=== PATIENT | female | born 1945 | race Caucasian/White ===

== ENCOUNTER 2016-11-17 10:20 | Outpatient (CLI) | payer MEDICARE, OTHER | END 2016-11-17 23:59 | DX: C25.9 Malignant neoplasm of pancreas, unspecified (principal); I10 Essential (primary) hypertension; E11.9 Type 2 diabetes mellitus without complications ==

== ENCOUNTER 2017-03-21 11:58 | Emergency (ER) | payer MEDICARE, OTHER ==
[2017-03-21] MEDS ORDERED: SODIUM CHLORIDE 0.9% 1,000 ML IV ONE (14:25)
[2017-03-21] MEDS ORDERED: ONDANSETRON 4 MG/2 ML VIAL IVP STA ×2 (14:33→18:45)
[2017-03-21] MEDS ORDERED: DIPHENOX/ATROPINE 2.5/0.025 MG TABLET PO STA (14:33)
--- NOTE | 2017-03-21 14:35 | ED Physician Documentation ---
PD HPI NVD - Stated complaint Stated Complaint: V/D - Chief complaint Chief Complaint: Abd Pain - History obtained from History obtained from: Patient, Family - History of Present Illness Timing - onset: Other (71-year-old woman with advanced pancreatic cancer undergoing chemotherapy, last infusion Tuesday through Tuesday of last week with 5 fluorouracil. Much of the history is from her because she has some memory difficulties. For the last day or so she has had vomiting and diarrhea, no blood from either end. She has chronic abdominal pain but not increased abdominal pain. There is no associated fever.) - Additonal information Additional information: Her oncologist is a Dr. 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 - Present Medications Home Medications: Ambulatory Orders Medication Instructions Recorded Confirmed Citalopram [CeleXA] 10 mg PO DAILY 10/17/15 03/21/17 Esomeprazole [NexIUM] 40 mg PO DAILY 10/17/15 03/21/17 Ondansetron [Zofran Odt] 8 mg PO BID PRN 08/02/16 03/21/17 Potassium Chloride [Klor-Con 10] 20 meq PO BID 08/02/16 03/21/17 Amitriptyline [Elavil] 50 mg PO DAILY PM 02/07/17 03/21/17 Ascorbic Acid [Vitamin C] 500 mg PO DAILY 02/07/17 03/21/17 Calcium Carbonate/Vitamin D3 1 cap PO DAILY 02/07/17 03/21/17 [Calcium 600-Vit D3 400 Tablet] Fluorouracil 3,000 mg PO ONCE 02/07/17 02/07/17 Lipase/Protease/Amylase [Jim [place] 4 - 5 cap PO AC 02/07/17 03/21/17 24,000 Units Capsule] Multivitamin [Multivitamins] 1 cap PO DAILY 02/07/17 03/21/17 Prochlorperazine Maleate 10 mg PO Q6H PRN 02/07/17 03/21/17 [Compazine] LORazepam [Ativan] 1 tab .Q4-6 HOURS PRN 03/21/17 03/21/17 Metoclopramide [Reglan] 10 mg PO Q6H PRN #20 tablet 03/21/17 - Allergies Allergies/Adverse Reactions: Allergies Allergy/AdvReac Type Severity Reaction Status Date / Time clobetasone Allergy Nausea Verified 03/21/17 12:14 erythromycin lactobionate * Allergy Rash Verified 03/21/17 12:14 [From Erythrocin] nefazodone HCl * Allergy Rash Verified 03/21/17 12:14 [From Serzone] - Social History Does the pt smoke?: No Smoking Status: Current every day smoker Does the pt drink ETOH?: No Does the pt have substance abuse?: No - Immunizations Immunizations are current?: Yes PD ED PE NORMAL - Vitals Vital signs reviewed: Yes - General General: No acute distress, Other (A/O x2) - HEENT HEENT: PERRL, EOMI - Neck Neck: Supple, no meningeal sign, No bony TTP - Cardiac Cardiac: RRR, No murmur - Respiratory Respiratory: No respiratory distress, Clear bilaterally - Abdomen Abdomen: Other (Mild diffuse TTP, nl bowel tones) - Back Back: No CVA TTP, No spinal TTP - Extremities Extremities: No edema, No calf tenderness / cord - Neuro Neuro: No motor deficit, No sensory deficit - Psych Psych: Normal mood, Normal affect Results - Vitals Vitals: Vital Signs - 24 hr 03/21/17 03/21/17 03/21/17 12:05 14:39 16:54 Temperature 36.6 C Heart Rate 114 H 108 H 111 H Respiratory 18 20 17 Rate Blood Pressure 138/67 H 105/56 L 112/58 L O2 Saturation 91 L 97 98 Oxygen O2 Source Room air - Labs Labs: Microbiology 03/21/17 20:10 Clostridium difficile (PCR) - Final Stool 03/21/17 20:10 Campylobacter Antigen Assay - Final Stool Laboratory Tests 03/21/17 03/21/17 14:40 14:40 WBC 1.0 L* RBC 4.41 Hgb 12.3 Hct 37.3 MCV 84.5 MCH 28.0 MCHC 33.1 RDW 23.1 H Plt Count 161 MPV 7.8 L Neut # 0.6 L Lymph # 0.1 L [place] # 0.2 Eos # 0.1 Baso # 0.0 Absolute Nucleated RBC 0.00 Nucleated RBCs 0.5 Platelet Estimate NORMAL (130-450,000) Platelet Morphology 2+ GIANT PLATELETS RBC Morph Micro Appear 3+ POIKILOCYTOSIS Sodium 129 L Potassium 3.2 L Chloride 94 L Carbon Dioxide 27 Anion Gap 8.0 BUN 27 H Creatinine 1.1 H Estimated GFR (MDRD) 49 L Glucose 167 H Calcium 8.3 L Total Bilirubin 0.6 AST 20 ALT 24 Alkaline Phosphatase 88 Total Protein 5.7 L Albumin 2.9 L Globulin 2.8 Albumin/Globulin Ratio 1.0 Lipase < 10 L PD MEDICAL DECISION MAKING - ED course ED course: 71-year-old woman with pancreatic cancer undergoing chemotherapy presents with vomiting and diarrhea after treatment with 5-fluorouracil. She was administered 2 L of crystalloid and potassium replacement. I spoke with her oncologist by phone who recommended stool studies as well. But agrees that probably this is from chemotherapy. There is no clinical evidence of obstruction. It took a while to get a hold of her nausea but eventually after a few doses of antiemetics she was able to pass an oral challenge her requested discharge. Departure - Departure Disposition: 01 Home, Self Care Clinical Impression: Vomiting Qualifiers: Vomiting type: unspecified Vomiting Intractability: non-intractable Nausea presence: with nausea Qualified Code(s): R11.2 - Nausea with vomiting, unspecified Diarrhea Qualifiers: Diarrhea type: unspecified type Qualified Code(s): R19.7 - Diarrhea, unspecified Condition: Good Record reviewed to determine appropriate education?: Yes Instructions: Nausea Vomit Control Prescriptions: Metoclopramide [Reglan] 10 mg PO Q6H PRN #20 tablet PRN Reason: Nausea / Vomiting Comments: Call your doctor to arrange a follow-up appointment, make the next available appointment. In the interim, return anytime if worse or if new symptoms develop.
[2017-03-21] MEDS ORDERED: ONDANSETRON 4 MG/2 ML VIAL ONE ×2 (14:55→19:15)
[2017-03-21] MEDS ORDERED: DIPHENOX/ATROPINE 2.5/0.025 MG TABLET PO ONE (14:55)
[2017-03-21 15:05] LABS: BASOPHILS % (AUTO) 0.4 %; EOSINOPHILS # (AUTO) 0.1 10^3/uL (0.0-0.7); EOSINOPHILS % (AUTO) 5.4 %; HCT - HEMATOCRIT 37.3 % (37.0-47.0); HGB - HEMOGLOBIN 12.3 g/dL (12.0-16.0); LYMPHOCYTES # (AUTO) 0.1 10^3/uL (1.5-3.5); LYMPHOCYTES % (AUTO) 11.9 %; MEAN CORPUSCULAR HGB CONC 33.1 g/dL (32.0-36.0); MEAN CORPUSCULAR VOLUME 84.5 fL (81.0-99.0); MEAN PLATELET VOLUME 7.8 fL (7.9-10.8); MONOCYTES # (AUTO) 0.2 10^3/uL (0.0-1.0); MONOCYTES % (AUTO) 18.5 %; NEUTROPHILS % (AUTO) 63.8 %; NUCLEATED RED BLOOD CELLS AUTO 0.5 /100WBC; RED BLOOD COUNT 4.41 10^6/uL (4.20-5.40); RED CELL DISTRIBUTION WIDTH 23.1 % (12.0-15.0)
[2017-03-21 15:16] LABS: NEUTROPHILS # (AUTO) 0.6 10^3/uL (1.5-6.6)
[2017-03-21 15:17] LABS: BILIRUBIN,TOTAL 0.6 mg/dL (0.2-1.0); BUN - BLOOD UREA NITROGEN 27 mg/dL (6-20); CALCIUM 8.3 mg/dL (8.5-10.3); CARBON DIOXIDE - CO2 27 mmol/L (21-32); CHLORIDE 94 mmol/L (101-111); CREATININE 1.1 mg/dL (0.4-1.0); GFR - MDRD 49 (>89); GLUCOSE 167 mg/dL (70-100); POTASSIUM 3.2 mmol/L (3.5-5.0); SODIUM 129 mmol/L (135-145); TOTAL PROTEIN 5.7 g/dL (6.7-8.2)
[2017-03-21 15:18] LABS: LIPASE < 10 U/L (22-51)
[2017-03-21] MEDS ORDERED: POTASSIUM BICARB 25 MEQ TABLET PO STA (15:19)
[2017-03-21] MEDS ORDERED: LACTATED RINGERS 1,000 ML IV STA (15:19)
[2017-03-21] MEDS ORDERED: POTASSIUM BICARB 25 MEQ TABLET PO ONE (15:25)
[2017-03-21 16:09] LABS: PLATELET MORPHOLOGY 2+ GIANT PLATELETS (NORMAL)
[2017-03-21 16:10] LABS: PLATELET ESTIMATE, MANUAL NORMAL (130-450,000) (NORMAL)
[2017-03-21] MEDS ORDERED: METOCLOPRAMIDE 10 MG/2 ML VIAL IVP STA (16:29)
[2017-03-21] MEDS ORDERED: METOCLOPRAMIDE 10 MG/2 ML VIAL ONE (16:49)
[2017-03-21] MEDS ORDERED: POTASSIUM CHLORIDE 20 MEQ TABLET PO STA (17:22)
[2017-03-21] MEDS ORDERED: POTASSIUM CHLORIDE 20 MEQ TABLET PO ONE (19:15)
[2017-03-21] MEDS ORDERED: MAG HYDROX/AL HYDROX/SIMETH 30 ML UDC PO STA (19:43)
[2017-03-21] MEDS ORDERED: LIDOCAINE VISCOUS 2% 15 ML UDC MM STA (19:43)
[2017-03-21] MEDS ORDERED: MAG HYDROX/AL HYDROX/SIMETH 30 ML UDC ONE (19:46)
[2017-03-21] MEDS ORDERED: LIDOCAINE VISCOUS 2% 15 ML UDC MM ONE (19:46)
[2017-03-21 21:52] VITALS: BP 129/66
== END 2017-03-21 22:06 | disposition home or self-care (01) ==
LOC: ED 11:58
DX: R11.2 Nausea with vomiting, unspecified (principal); R19.7 Diarrhea, unspecified; C25.9 Malignant neoplasm of pancreas, unspecified; E11.9 Type 2 diabetes mellitus without complications; F17.200 Nicotine dependence, unspecified, uncomplicated; Z92.21 Personal history of antineoplastic chemotherapy
CPT/HCPCS: 36415; 80053; 83690; 85025; 87045; 87046; 87077; 87493; 96374; 96375; 99283; A9270; 83630

== ENCOUNTER 2017-03-25 10:53 | Emergency (ER) | payer MEDICARE, OTHER ==
[2017-03-25] MEDS ORDERED: SODIUM CHLORIDE 0.9% 1,000 ML IV ONE (12:15)
[2017-03-25] MEDS ORDERED: HYDROmorphone 1 MG/ML SYRINGE IVP STA (12:15)
[2017-03-25] MEDS ORDERED: ONDANSETRON 4 MG/2 ML VIAL IVP STA (12:15)
[2017-03-25] MEDS ORDERED: HYDROmorphone 1 MG/ML SYRINGE ONE (12:45)
[2017-03-25] MEDS ORDERED: ONDANSETRON 4 MG/2 ML VIAL ONE (12:45)
[2017-03-25 13:12] LABS: BASOPHILS % (AUTO) 0.3 %; EOSINOPHILS % (AUTO) 1.5 %; HCT - HEMATOCRIT 37.5 % (37.0-47.0); HGB - HEMOGLOBIN 12.6 g/dL (12.0-16.0); LYMPHOCYTES % (AUTO) 11.2 %; MEAN CORPUSCULAR HEMOGLOBIN 28.1 pg (27.0-31.0); MEAN CORPUSCULAR HGB CONC 33.5 g/dL (32.0-36.0); MEAN CORPUSCULAR VOLUME 83.9 fL (81.0-99.0); MEAN PLATELET VOLUME 8.6 fL (7.9-10.8); MONOCYTES % (AUTO) 0.5 %; NEUTROPHILS % (AUTO) 86.5 %; RED BLOOD COUNT 4.46 10^6/uL (4.20-5.40); RED CELL DISTRIBUTION WIDTH 22.7 % (12.0-15.0); UNCORRECTED WHITE BLOOD COUNT 6.9 x10^3/uL; WHITE BLOOD COUNT 6.9 x10^3/uL (4.8-10.8)
[2017-03-25 13:22] LABS: BILIRUBIN,TOTAL 0.8 mg/dL (0.2-1.0); CALCIUM 8.9 mg/dL (8.5-10.3); CREATININE 0.8 mg/dL (0.4-1.0); TOTAL PROTEIN 5.1 g/dL (6.7-8.2)
[2017-03-25] MEDS ORDERED: POTASSIUM BICARB 25 MEQ TABLET PO STA (13:22)
[2017-03-25] MEDS ORDERED: POTASSIUM CHLOR 20 MEQ/100 ML 100 ML IV ONE (13:22)
[2017-03-25 13:23] LABS: POTASSIUM 2.4 mmol/L (3.5-5.0)
[2017-03-25] MEDS ORDERED: POTASSIUM BICARB 25 MEQ TABLET PO ONE (13:29)
[2017-03-25] MEDS ORDERED: POTASSIUM CHLOR 10 MEQ/100 ML 200 ML IV ONE (13:32)
[2017-03-25] MEDS ORDERED: POTASSIUM CHLOR 10 MEQ/100 ML 100 ML IV ONE ×2 (13:35→13:37)
[2017-03-25 13:58] LABS: BAND NEUTROPHILS % (MANUAL) 22 %; LYMPHOCYTES % (MANUAL) 12 %; NEUTROPHILS % (MANUAL) 31 %; TOTAL CELLS COUNTED 100
[2017-03-25 13:59] LABS: NP AUTO DIFFERENTIAL? YES; NP MAN DIFFERENTIAL? NO
[2017-03-25 15:31] LABS: PH,URINE 6.5 PH (5.0-7.5)
[2017-03-25 15:33] LABS: BILIRUBIN,URINE NEGATIVE (NEGATIVE); UA CHARGE (STRIP ONLY) YES; UR CULTURE IF IND NOT INDICATED
[2017-03-25 16:18] VITALS: BP 144/67
--- NOTE | 2017-03-25 16:18 | ED Physician Documentation ---
History of Present Illness - Stated complaint Stated Complaint: V/D - Chief complaint Chief Complaint: Abd Pain - History obtained from History obtained from: Patient, Family - Additonal information Additional information: The patient is a pleasant 71-year-old female with a history of pancreatic cancer with liver metastases, diagnosed one half years ago, who presents complaining of "stomachache." She describes it as "a burning esophagus." She reports vomiting and watery diarrhea. Her symptoms started 5 days ago, and worsen when trying to eat. She denies fever or dysuria. She underwent a round of chemotherapy 1 week ago. She was seen in the emergency department here 4 days ago with similar symptoms, and was treated with IV fluids and antiemetics. Review of her record from that visit reveals neutropenia at that time with a white blood cell count of 1.0. She was also hypokalemic, and was treated with supplemental potassium. Review of Systems Constitutional: reports: Fatigue. denies: Fever Nose: denies: Congestion Throat: denies: Sore throat Cardiac: denies: Chest pain / pressure Respiratory: denies: Dyspnea, Cough GI: reports: Abdominal Pain, Nausea, Vomiting, Diarrhea. denies: Bloody / black stool : denies: Dysuria Skin: denies: Rash Musculoskeletal: denies: Extremity swelling Neurologic: reports: Generalized weakness. denies: Focal weakness, Numbness, Altered mental status, Headache PD PAST MEDICAL HISTORY - Past Medical History Respiratory: COPD Endocrine/Autoimmune: Type 2 diabetes GI: Other Psych: Anxiety Musculoskeletal: Osteoarthritis, Fibromyalgia, Osteopenia, Other Derm: Psoriasis Other Past Medical History: Pancreatic cancer with liver metastases. 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 - Present Medications Home Medications: Ambulatory Orders Medication Instructions Recorded Confirmed Citalopram [CeleXA] 10 mg PO DAILY 10/17/15 03/21/17 Esomeprazole [NexIUM] 40 mg PO DAILY 10/17/15 03/21/17 Ondansetron [Zofran Odt] 8 mg PO BID PRN 08/02/16 03/21/17 Potassium Chloride [Klor-Con 10] 20 meq PO BID 08/02/16 03/21/17 Amitriptyline [Elavil] 50 mg PO DAILY PM 02/07/17 03/21/17 Ascorbic Acid [Vitamin C] 500 mg PO DAILY 02/07/17 03/21/17 Calcium Carbonate/Vitamin D3 1 cap PO DAILY 02/07/17 03/21/17 [Calcium 600-Vit D3 400 Tablet] Fluorouracil 3,000 mg PO ONCE 02/07/17 02/07/17 Lipase/Protease/Amylase [Jim Dr 4 - 5 cap PO AC 02/07/17 03/21/17 24,000 Units Capsule] Multivitamin [Multivitamins] 1 cap PO DAILY 02/07/17 03/21/17 Prochlorperazine Maleate 10 mg PO Q6H PRN 02/07/17 03/21/17 [Compazine] LORazepam [Ativan] 1 tab .Q4-6 HOURS PRN 03/21/17 03/21/17 Metoclopramide [Reglan] 10 mg PO Q6H PRN #20 tablet 03/21/17 - Allergies Allergies/Adverse Reactions: Allergies Allergy/AdvReac Type Severity Reaction Status Date / Time clobetasone Allergy Nausea Verified 03/21/17 12:14 erythromycin lactobionate * Allergy Rash Verified 03/21/17 12:14 [From Erythrocin] nefazodone HCl * Allergy Rash Verified 03/21/17 12:14 [From Serzone] - Social History Does the pt smoke?: No Smoking Status: Current every day smoker Does the pt drink ETOH?: No Does the pt have substance abuse?: No - Immunizations Immunizations are current?: Yes PD ED PE NORMAL - Vitals Vital signs reviewed: Yes (Hypertensive and mildly tachycardic.) - General General: Alert and oriented X 3, Well developed/nourished, Other (Appears fatigued.) - HEENT HEENT: Atraumatic, EOMI, Pharynx benign - Neck Neck: Supple, no meningeal sign, No adenopathy, No JVD - Cardiac Cardiac: No murmur, Other (Mildly tachycardic at 100.) - Respiratory Respiratory: No respiratory distress, Clear bilaterally - Abdomen Abdomen: Soft, Non tender - Back Back: No CVA TTP - Derm Derm: No rash - Extremities Extremities: No edema, No calf tenderness / cord - Neuro Neuro: Alert and oriented X 3, No motor deficit, Normal speech Results - Vitals Vitals: Oxygen O2 Source Nasal cannula Oxygen Flow Rate 2 - Labs Labs: Laboratory Tests 03/25/17 03/25/17 03/25/17 12:55 12:55 15:16 WBC 6.9 RBC 4.46 Hgb 12.6 Hct 37.5 MCV 83.9 MCH 28.1 MCHC 33.5 RDW 22.7 H Plt Count 148 MPV 8.6 Neut # Not Reportable Lymph # Not Reportable [place] # Not Reportable Eos # Not Reportable Baso # Not Reportable Absolute Nucleated RBC Not Reportable Total Counted 100 Band Neuts % (Manual) 22 H Reactive Lymphs % (Man) 6 Metamyelocytes % 3 H Myelocytes % 9 H Neutrophils # (Manual) 3.7 Lymphocytes # (Manual) 1.2 L Monocytes # (Manual) 1.2 H Nucleated RBCs 2 Sodium 129 L Potassium 2.4 L* Chloride 93 L Carbon Dioxide 26 Anion Gap 10.0 BUN 24 H Creatinine 0.8 Estimated GFR (MDRD) 71 L Glucose 135 H Calcium 8.9 Total Bilirubin 0.8 AST 20 ALT 21 Alkaline Phosphatase 65 Total Protein 5.1 L Albumin 2.5 L Globulin 2.6 Albumin/Globulin Ratio 1.0 Lipase 13 L Urine Color DARK YELLOW Urine Clarity CLEAR Urine pH 6.5 Ur Specific [place] 1.015 Urine Protein TRACE Urine Glucose (UA) NEGATIVE Urine Ketones 40 H Urine Occult Blood TRACE-INTA Urine Nitrite NEGATIVE Urine Bilirubin NEGATIVE Urine Urobilinogen 0.2 (NORMAL) Ur Leukocyte Esterase NEGATIVE Ur Microscopic Review NOT INDICATED Urine Culture Comments NOT INDICATED PD MEDICAL DECISION MAKING - ED course Complexity details: reviewed old records, reviewed results, re-evaluated patient , considered differential, d/w patient, d/w family ED course: The patient's presentation is significant for vomiting and diarrhea with dehydration, one-week post chemotherapy for pancreatic cancer. Her lab results also reveal hypokalemia, with a potassium of 2.4, and hyponatremia, with a sodium of 129. She is no longer neutropenic, with a white blood cell count of 6.5. Treatment in the emergency department included administration of normal saline 1 L IV, ondansetron 4 mg IV, Dilaudid 1 mg IV, and potassium 20 mEq IV, and 25 mEq orally. Following the above treatment she felt subjectively much improved, and she demonstrated ability to drink fluids and eat crackers without recurrent nausea. I discussed with her and her daughter continued symptomatic treatment, outpatient follow-up, as well as potentially worrisome signs or symptoms that should prompt reevaluation in the emergency department. Departure - Departure Disposition: 01 Home, Self Care Clinical Impression: Vomiting and diarrhea, Dehydration, Hypokalemia, Hyponatremia Pancreatic cancer Qualifiers: Pancreatic malignancy location: unspecified Qualified Code(s): C25.9 - Malignant neoplasm of pancreas, unspecified Condition: Stable Instructions: ED Dehydration, ED Potassium Deficiency Follow-Up: Romel Quesada MD [Provider Admit Priv/Credential] - Comments: 1. Drink plenty of fluids. 2. Use your antinausea medication as needed. 3. Resume taking her potassium as previously prescribed. 4. Follow-up with your primary physician or your oncologist. Call to schedule an appointment. 5. Return to the emergency department if you develop increasing abdominal pain , persistent vomiting, recurrent dehydration, or otherwise worsening symptoms. Discharge Date/Time: 03/25/17 17:01
== END 2017-03-25 17:01 | disposition home or self-care (01) ==
LOC: ED 10:53
DX: R11.10 Vomiting, unspecified (principal); R19.7 Diarrhea, unspecified; E86.0 Dehydration; E87.6 Hypokalemia; E87.1 Hypo-osmolality and hyponatremia; C25.9 Malignant neoplasm of pancreas, unspecified; C78.7 Secondary malignant neoplasm of liver and intrahepatic bile duct; E11.9 Type 2 diabetes mellitus without complications; Z92.21 Personal history of antineoplastic chemotherapy; Z87.891 Personal history of nicotine dependence
CPT/HCPCS: 36415; 80053; 81003; 83690; 85025; 96374; 96375; 96376; 99284; A9270; J1170; 81001; 87086

== ENCOUNTER 2017-07-04 14:48 | Outpatient (CLI) | payer MEDICARE, OTHER ==
--- NOTE | 2017-07-05 09:47 | XRAY Report ---
TWO-VIEW CHEST: 07/04/2017 CLINICAL INDICATION: Cough, dyspnea, effusion. COMPARISON: CT 06/28/2016, chest x-ray 06/25/2016. FINDINGS: Frontal and lateral views of the chest demonstrate a normal cardiac silhouette. A left ju gular port terminates in the distal superior vena cava. A small left pleural effusion is present, wi th volume smaller than seen on pre-thoracentesis film of 06/25/2016. Minimal basilar atelectasis is present. The right lung remains clear. IMPRESSION: SMALL LEFT PLEURAL EFFUSION, WITH BASILAR ATELECTASIS. JOB #: [id number] EXT JOB #:[id number]
== END 2017-07-04 14:49 | disposition home or self-care (01) ==
LOC: DI 14:48
PROVIDERS: ATTEND Family Medicine
DX: J90 Pleural effusion, not elsewhere classified (principal)
CPT/HCPCS: 71020

== ENCOUNTER 2017-08-04 14:00 | Outpatient (CLI) | payer MEDICARE, OTHER ==
[2017-08-04 20:22] LABS: HEMOGLOBIN A1C 0.99 g/dL
== END 2017-08-04 14:01 ==
LOC: LAB.WCP 14:00
PROVIDERS: ATTEND Family Medicine
DX: E11.9 Type 2 diabetes mellitus without complications (principal)
CPT/HCPCS: 36415; 83036

== ENCOUNTER 2017-12-13 00:22 | Emergency (ER) | payer MEDICARE, OTHER ==
--- NOTE | 2017-12-13 02:47 | ED Physician Documentation ---
PD HPI ABD PAIN - Stated complaint Stated Complaint: ABD PAIN - Chief complaint Chief Complaint: Abd Pain - History obtained from History obtained from: Patient - History of Present Illness Timing - onset: How many months ago (3-4) Timing - duration: Months Timing - details: Gradual onset, Intermittant, Waxing and waning Pain level now: 6 Quality: Pain Location: RUQ, Epigastric, LUQ Radiation: No: Chest, , Lower back, Left flank, Left shoulder, Right flank, Right shoulder, Upper back Improved by: Laying still Worsened by: Eating Associated symptoms: Nausea, Vomiting. No: Fever, Diarrhea, Constipation, Dysuria, Chest pain - Additional information Additional information: c/o few months of gradually worsening pain across upper abdomen, episodic. also increasing component of burning midline upper abdomen and chest discomfort consistent with GERD although worse and more frequent than previous. patient has pancreatic CA and recently discovered liver masses and is in the process of mapping out where she will have radiation tx. for this. she take oxycontin and oxycodone on regular basis for ongoing upper abdominal pain but this was not providing adequate relief tonight Review of Systems Constitutional: reports: Reviewed and negative Cardiac: reports: Reviewed and negative Respiratory: reports: Reviewed and negative GI: reports: Abdominal Pain, Nausea, Vomiting (denied vomiting, but had emesis during HPI). 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 - Present Medications Home Medications: Ambulatory Orders Medication Instructions Recorded Confirmed Citalopram [CeleXA] 10 mg PO DAILY 10/17/15 05/16/17 Esomeprazole [NexIUM] 40 mg PO DAILY 10/17/15 05/16/17 Ondansetron [Zofran Odt] 8 mg PO BID PRN 08/02/16 05/16/17 Potassium Chloride [Klor-Con 10] 20 meq PO BID 08/02/16 05/16/17 Amitriptyline [Elavil] 50 mg PO DAILY PM 02/07/17 05/16/17 Ascorbic Acid [Vitamin C] 500 mg PO DAILY 02/07/17 05/16/17 Calcium Carbonate/Vitamin D3 1 cap PO DAILY 02/07/17 05/16/17 [Calcium 600-Vit D3 400 Tablet] Fluorouracil 3,000 mg PO ONCE 02/07/17 02/07/17 Lipase/Protease/Amylase [[place] Dr 2 cap PO AC 02/07/17 05/16/17 24,000 Units Capsule] Multivitamin [Multivitamins] 1 cap PO DAILY 02/07/17 05/16/17 Prochlorperazine Maleate 10 mg PO Q6H PRN 02/07/17 05/16/17 [Compazine] LORazepam [Ativan] 1 tab .Q4-6 HOURS PRN 03/21/17 05/16/17 Metoclopramide [Reglan] 10 mg PO Q6H PRN #20 tablet 03/21/17 05/16/17 - Allergies Allergies/Adverse Reactions: Allergies Allergy/AdvReac Type Severity Reaction Status Date / Time clobetasone Allergy Nausea Verified 12/13/17 00:40 erythromycin lactobionate * Allergy Rash Verified 12/13/17 00:40 [From Erythrocin] nefazodone HCl * Allergy Rash Verified 12/13/17 00:40 [From Serzone] - Social History Does the pt smoke?: No Smoking Status: Never smoker Does the pt drink ETOH?: No Does the pt have substance abuse?: No - Immunizations Immunizations are current?: Yes PD ED PE NORMAL - Vitals Vital signs reviewed: Yes - General General: Alert and oriented X 3, No acute distress, Well developed/nourished - HEENT HEENT: Moist mucous membranes - Neck Neck: Supple, no meningeal sign - Cardiac Cardiac: RRR, No murmur, No gallop, No rub - Respiratory Respiratory: No respiratory distress, Clear bilaterally - Abdomen Abdomen: Normal bowel sounds, Soft - Back Back: No CVA TTP - Derm Derm: Normal color, Warm and dry - Extremities Extremities: No edema - Neuro Neuro: Alert and oriented X 3 PD ED PE EXPANDED - Abdomen Abdomen: Distended, Tender to palpation, Epigastric. No: Rebound, Guarding, Mass Results - Vitals Vitals: Vital Signs - 24 hr 12/13/17 12/13/17 12/13/17 00:33 03:25 05:34 Temperature 36.1 C L Heart Rate 100 90 69 Respiratory 17 16 18 Rate Blood Pressure 118/61 121/70 133/71 H O2 Saturation 95 90 L 95 Oxygen O2 Source Room air - Labs Labs: Laboratory Tests 12/13/17 12/13/17 03:34 03:34 WBC 6.1 RBC 4.33 Hgb 12.6 Hct 37.8 MCV 87.3 MCH 29.0 MCHC 33.3 RDW 17.3 H Plt Count 167 MPV 8.6 Neut # 4.9 Lymph # 0.5 L [place] # 0.6 Eos # 0.1 Baso # 0.0 Absolute Nucleated RBC 0.00 Nucleated RBC % 0.1 Sodium 130 L Potassium 4.3 Chloride 90 L Carbon Dioxide 33 H Anion Gap 7.0 BUN 9 Creatinine 0.5 Estimated GFR (MDRD) 122 Glucose 137 H Calcium 9.0 Total Bilirubin 1.0 AST 148 H ALT 127 H Alkaline Phosphatase 405 H Total Protein 6.9 Albumin 3.2 Globulin 3.7 Albumin/Globulin Ratio 0.9 L Lipase < 10 L PD MEDICAL DECISION MAKING - ED course Complexity details: reviewed results, re-evaluated patient, considered differential, d/w patient Departure - Departure Disposition: 01 Home, Self Care Clinical Impression: Abdominal pain, Dehydration, Vomiting Condition: Good Instructions: ED Nausea Vomiting, ED Epigastric Pain [facility] Follow-Up: Romel Quesada MD [Primary Care Provider] - Discharge Date/Time: 12/13/17 05:34
[2017-12-13] MEDS ORDERED: SODIUM CHLORIDE 0.9% 1,000 ML IV STA (03:24)
[2017-12-13] MEDS ORDERED: MORPHINE 2 MG/ML SYRINGE IVP STA (03:24)
[2017-12-13] MEDS ORDERED: ONDANSETRON 4 MG/2 ML VIAL IVP STA (03:24)
[2017-12-13] MEDS ORDERED: LIDOCAINE VISCOUS 2% 15 ML UDC MM STA (03:25)
[2017-12-13] MEDS ORDERED: MAG HYDROX/AL HYDROX/SIMETH 30 ML UDC PO STA (03:25)
[2017-12-13] MEDS ORDERED: PHENobarb/HYOSCY/ATROPINE/SCOP 5 ML UDC PO STA (03:26)
[2017-12-13 03:37] LABS: BASOPHILS % (AUTO) 0.6 %; EOSINOPHILS # (AUTO) 0.1 10^3/uL (0.0-0.7); EOSINOPHILS % (AUTO) 2.1 %; HGB - HEMOGLOBIN 12.6 g/dL (12.0-16.0); LYMPHOCYTES # (AUTO) 0.5 10^3/uL (1.5-3.5); LYMPHOCYTES % (AUTO) 7.5 %; MEAN CORPUSCULAR HGB CONC 33.3 g/dL (32.0-36.0); MEAN CORPUSCULAR VOLUME 87.3 fL (81.0-99.0); MEAN PLATELET VOLUME 8.6 fL (7.9-10.8); MONOCYTES # (AUTO) 0.6 10^3/uL (0.0-1.0); MONOCYTES % (AUTO) 9.4 %; NEUTROPHILS # (AUTO) 4.9 10^3/uL (1.5-6.6); NEUTROPHILS % (AUTO) 80.4 %; PLT - PLATELET COUNT 167 10^3/uL (130-450); RED BLOOD COUNT 4.33 10^6/uL (4.20-5.40); RED CELL DISTRIBUTION WIDTH 17.3 % (12.0-15.0); WHITE BLOOD COUNT 6.1 x10^3/uL (4.8-10.8)
[2017-12-13 03:56] LABS: ALBUMIN 3.2 g/dL (3.2-5.5); ALBUMIN/GLOBULIN RATIO 0.9 (1.0-2.2); ALKALINE PHOSPHATASE 405 IU/L (42-121); ALT ALANINE AMINOTRANSFERASE 127 IU/L (10-60); AST ASPARTATE AMINOTRANSFERASE 148 IU/L (10-42); BUN - BLOOD UREA NITROGEN 9 mg/dL (6-20); CARBON DIOXIDE - CO2 33 mmol/L (21-32); CHLORIDE 90 mmol/L (101-111); CREATININE 0.5 mg/dL (0.4-1.0); GFR - MDRD 122 (>89); GLUCOSE 137 mg/dL (70-100); SODIUM 130 mmol/L (135-145); TOTAL PROTEIN 6.9 g/dL (6.7-8.2)
[2017-12-13 03:57] LABS: LIPASE < 10 U/L (22-51)
[2017-12-13 05:35] VITALS: BP 133/71
== END 2017-12-13 05:34 | disposition home or self-care (01) ==
LOC: ED 00:22
DX: R10.13 Epigastric pain (principal); E86.0 Dehydration; R11.10 Vomiting, unspecified; E11.9 Type 2 diabetes mellitus without complications; C25.9 Malignant neoplasm of pancreas, unspecified
CPT/HCPCS: 36415; 80053; 83690; 85025; 96374; 99283; 99284; A9270; J2270